=== PATIENT | female | born 1955 | race Two or more races ===

== ENCOUNTER 2022-09-15 06:51 | Day surgery (SDC) | payer OTHER ==
[~2022-09-15] VITALS: Ht 167.6 cm; Wt 67.1 kg
[~2022-09-15 06:51] MED LIST: DIOVAN320 MG PO; LANTUS SOL100 UNIT/1; METFORMIN HCL850 M1 PO; NORVASC5 MG PO; TOPROL XL25 M1 PO
[2022-09-15] MEDS ORDERED: CILOXAN5 ML OTIC (12:26)
[2022-09-15] MEDS ORDERED: CEPHALEXIN500 M1 PO (12:26)
== END 2022-09-15 15:00 | disposition home or self-care (01) ==
LOC: CIR.AMB 06:51
PROVIDERS: ATTEND Otolaryngology Otology & Neurotology
DX: H72.01 Central perforation of tympanic membrane, right ear (principal); H90.A11 Conductive hearing loss, unilateral, right ear with restricted hearing on the contralateral side; I10 Essential (primary) hypertension; E11.9 Type 2 diabetes mellitus without complications; Z79.4 Long term (current) use of insulin; Z86.16 Personal history of COVID-19; Z20.822 Contact with and (suspected) exposure to COVID-19